=== PATIENT | female | born 1995 | race Hispanic/Latino ===

== ENCOUNTER 2019-05-11 10:34 | Emergency (ER) | payer MEDICAID, OTHER ==
--- NOTE | 2019-05-11 11:31 | Emergency Department Report ---
ED ENT HPI - General Chief complaint: Earache Stated complaint: L EAR PAIN Time Seen by Provider: 05/11/19 11:17 Source: patient Mode of arrival: Ambulatory Limitations: No Limitations - History of Present Illness Initial comments: This is a 23-year-old female brought by mother nontoxic, well nourished in appearance, no acute signs of distress presents to the ED with c/o of left earache. Patient denies any ear drainage. Patient denies any trauma to the area. Patient denies any mastoid tenderness. Patient agrees to tragus tenderness. Patient denies hearing decrease or hearing changes. Patient denies any fever, chills, nausea, vomiting, chest pain, short of breath, headache or stiff neck. Patient stated allergies to PCN and Bactrim. Denies any significant PMH. MD complaint: ear pain -: days(s) Location: L ear Severity: mild Severity scale (0 -10): 8 Quality: aching Consistency: constant Improves with: none Worsens with: none Associated Symptoms: denies: fever, cough, gum swelling, toothache, pain with swallowing, sore throat, tinnitus, hearing loss, discharge from ear, rhinorrhea - Related Data Previous Rx's Medication Instructions Recorded Last Taken Type Famotidine/Ca Carb/Mag Hydrox 1 each PO BID #20 tab.chew 08/11/13 Unknown Rx [Pepcid Complete Tablet Chew] Omeprazole Magnesium [Prilosec Otc] 20 mg PO QDAY #30 tablet. 08/11/13 Unknown Rx Amoxicillin [Amoxicillin TAB] 875 mg PO BID #14 tablet 12/29/14 Unknown Rx Benzonatate [Tessalon Perles] 100 mg PO Q8HR #30 capsule 12/29/14 Unknown Rx Fluticasone [Flonase] 1 spray NS QDAY #1 bottle 12/29/14 Unknown Rx Famotidine [Pepcid] 20 mg PO BID #40 tablet 06/28/15 Unknown Rx Nitrofurantoin Leon/M-Cryst 100 mg PO Q12HR #14 capsule 06/28/15 Unknown Rx [Macrobid CAP] Azithromycin [Zithromax Z-CLOVER] 250 mg PO DAILY #6 tablet 05/11/19 Unknown Rx Ciprofloxacin 0.2%(Nf) 4 drops TID #1 droperette 05/11/19 Unknown Rx [Ciprofloxacin Otic 0.2%(Nf)] Allergies Allergy/AdvReac Type Severity Reaction Status Date / Time amoxicillin Allergy Swelling Verified 05/11/19 10:42 sulfamethoxazole Allergy Swelling Verified 05/11/19 10:42 [From Bactrim] trimethoprim [From Bactrim] Allergy Swelling Verified 05/11/19 10:42 ED Dental HPI - General Chief complaint: Earache Stated complaint: L EAR PAIN Time Seen by Provider: 05/11/19 11:17 Source: patient Mode of arrival: Ambulatory Limitations: No Limitations - Related Data Previous Rx's Medication Instructions Recorded Last Taken Type Famotidine/Ca Carb/Mag Hydrox 1 each PO BID #20 tab.chew 08/11/13 Unknown Rx [Pepcid Complete Tablet Chew] Omeprazole Magnesium [Prilosec Otc] 20 mg PO QDAY #30 tablet.dr 08/11/13 Unknown Rx Amoxicillin [Amoxicillin TAB] 875 mg PO BID #14 tablet 12/29/14 Unknown Rx Benzonatate [Tessalon Perles] 100 mg PO Q8HR #30 capsule 12/29/14 Unknown Rx Fluticasone [Flonase] 1 spray NS QDAY #1 bottle 12/29/14 Unknown Rx Famotidine [Pepcid] 20 mg PO BID #40 tablet 06/28/15 Unknown Rx Nitrofurantoin Leon/M-Cryst 100 mg PO Q12HR #14 capsule 06/28/15 Unknown Rx [Macrobid CAP] Azithromycin [Zithromax Z-CLOVER] 250 mg PO DAILY #6 tablet 05/11/19 Unknown Rx Ciprofloxacin 0.2%(Nf) 4 drops TID #1 droperette 05/11/19 Unknown Rx [Ciprofloxacin Otic 0.2%(Nf)] Allergies Allergy/AdvReac Type Severity Reaction Status Date / Time amoxicillin Allergy Swelling Verified 05/11/19 10:42 sulfamethoxazole Allergy Swelling Verified 05/11/19 10:42 [From Bactrim] trimethoprim [From Bactrim] Allergy Swelling Verified 05/11/19 10:42 ED Review of Systems ROS: Stated complaint: L EAR PAIN Other details as noted in HPI Constitutional: denies: chills, fever Eyes: denies: eye pain, eye discharge, vision change ENT: ear pain. denies: throat pain Respiratory: denies: cough, shortness of breath, wheezing Cardiovascular: denies: chest pain, palpitations Endocrine: no symptoms reported Gastrointestinal: denies: abdominal pain, nausea, diarrhea Genitourinary: denies: urgency, dysuria, discharge Musculoskeletal: denies: back pain, joint swelling, arthralgia Skin: denies: rash, lesions Neurological: denies: headache, weakness, paresthesias Psychiatric: denies: anxiety, depression Hematological/Lymphatic: denies: easy bleeding, easy bruising ED Past Medical Hx - Past Medical History Previous Medical History?: No Hx GERD: Yes Hx Psychiatric Treatment: Yes (anxiety) - Surgical History Past Surgical History?: No - Social History Smoking Status: Never Smoker Substance Use Type: None - Medications Home Medications: Home Medications Medication Instructions Recorded Confirmed Last Taken Type Famotidine/Ca Carb/Mag Hydrox 1 each PO BID #20 tab.chew 08/11/13 Unknown Rx [Pepcid Complete Tablet Chew] Omeprazole Magnesium [Prilosec Otc] 20 mg PO QDAY #30 tablet.dr 08/11/13 Unknown Rx Amoxicillin [Amoxicillin TAB] 875 mg PO BID #14 tablet 12/29/14 Unknown Rx Benzonatate [Tessalon Perles] 100 mg PO Q8HR #30 capsule 12/29/14 Unknown Rx Fluticasone [Flonase] 1 spray NS QDAY #1 bottle 12/29/14 Unknown Rx Famotidine [Pepcid] 20 mg PO BID #40 tablet 06/28/15 Unknown Rx Nitrofurantoin Leon/M-Cryst 100 mg PO Q12HR #14 capsule 06/28/15 Unknown Rx [Macrobid CAP] Azithromycin [Zithromax Z-CLOVER] 250 mg PO DAILY #6 tablet 05/11/19 Unknown Rx Ciprofloxacin 0.2%(Nf) 4 drops TID #1 droperette 05/11/19 Unknown Rx [Ciprofloxacin Otic 0.2%(Nf)] ED Physical Exam - General Limitations: No Limitations General appearance: alert, in no apparent distress - Head Head exam: Present: atraumatic, normocephalic - Expanded ENT Exam Expanded Ear exam: Present: normal external inspection TM/Canal exam: Erythema: Left TM, Bulging: Left TM Mouth exam: Present: normal external inspection. Absent: drooling, trismus, muffled voice Teeth exam: Present: normal inspection Throat exam: Positive: normal inspection. Negative: tonsillar erythema, tonsillomegaly, tonsillar exudate, R peritonsillar mass, L peritonsillar mass - Neck Neck exam: Present: normal inspection, full ROM. Absent: tenderness, meningismus, lymphadenopathy - Extremities Exam Extremities exam: Present: normal inspection, full ROM, normal capillary refill - Back Exam Back exam: Present: normal inspection, full ROM - Neurological Exam Neurological exam: Present: alert, oriented X3, normal gait - Psychiatric Psychiatric exam: Present: normal affect, normal mood - Skin Skin exam: Present: warm, dry, intact, normal color. Absent: rash ED Course Vital Signs 05/11/19 10:38 Temperature 97.8 F Pulse Rate 87 Respiratory 16 Rate Blood Pressure 127/79 O2 Sat by Pulse 97 Oximetry - Reevaluation(s) Reevaluation #1: 05/11/19 11:36 Patient is speaking in full sentences with no signs of distress noted. Critical care attestation.: If time is entered above; I have spent that time in minutes in the direct care of this critically ill patient, excluding procedure time. ED Disposition Clinical Impression: Otitis media Qualifiers: Otitis media type: unspecified Chronicity: acute Qualified Code(s): H66.90 - Otitis media, unspecified, unspecified ear Otitis externa Qualifiers: Otitis externa type: unspecified type Chronicity: acute Laterality: left Qualified Code(s): H60.502 - Unspecified acute noninfective otitis externa, left ear Disposition: DC-01 TO HOME OR SELFCARE Is pt being admited?: No Does the pt Need Aspirin: No Condition: Stable Instructions: Otitis Media (ED), Otitis Externa (ED) Additional Instructions: Follow-up with a primary care doctor in 3-5 days or if symptoms worsen and continue return to emergency room as soon as possible. Prescriptions: Ciprofloxacin 0.2%(Nf) [Ciprofloxacin Otic 0.2%(Nf)] 4 drops TID #1 droperette Azithromycin [Zithromax Z-CLOVER] 250 mg PO DAILY #6 tablet Referrals: PRIMARY CAREMD [Referring] - 3-5 Days ADRIANNA JACK MD [Staff Physician] - 3-5 Days [facility] [Outside] - 3-5 Days [facility] [Outside] - 3-5 Days Forms: Work/School Release Form(ED)
[2019-05-11 11:54] VITALS: BP 105/72
== END 2019-05-11 11:55 | disposition home or self-care (01) ==
LOC: ED 10:34
DX: H66.92 Otitis media, unspecified, left ear (principal); H60.92 Unspecified otitis externa, left ear; K21.9 Gastro-esophageal reflux disease without esophagitis; F41.9 Anxiety disorder, unspecified; Z88.1 Allergy status to other antibiotic agents; Z88.2 Allergy status to sulfonamides